=== PATIENT | female | born 1970 | race Caucasian/White ===

== ENCOUNTER 2017-02-04 10:36 | Emergency (ER) | payer OTHER ==
[~2017-02-04 10:36] MED LIST: ATIVAN1 MG PO; METROGEL0.751 VG; MEVACOR20 MG PO
[2017-02-04 11:43] LABS: PLATELET COUNT 400 x10^3mcL (130-400); RED CELL DISTRIBUTION WIDTH 12.9 % (11.5-14.5)
[2017-02-04 11:48] LABS: BASOPHIL % 2.2 % (0-2)
[2017-02-04 11:56] LABS: CALCIUM 8.5 mg/dL (8.5-10.1); CARBON DIOXIDE 26.6 mmol/L (21-32); CHLORIDE SERUM 104 mmol/L (98-107); CREATININE SERUM 0.8 mg/dL (0.6-1.0); GFR1 > 60 mL/min; GLUCOSE SERUM 109 mg/dL (74-106); SODIUM SERUM 139 mmol/L (136-145)
[2017-02-04 11:59] LABS: ALKALINE PHOSPHATASE 58 U/L (46-116); ALT/SGPT 26 U/L (14-59); AST/SGOT 26 U/L (15-37); BILIRUBIN TOTAL 0.24 mg/dL (0.20-1.00); HDL CHOLESTEROL 50 mg/dL (40-60); LIPASE 224 IU/L (73-393); TOTAL PROTEIN, SERUM 6.8 g/dL (6.4-8.2)
[2017-02-04 12:01] LABS: ALBUMIN 3.1 g/dL (3.4-5.0); CHOLESTEROL 216 mg/dL (<200); CHOLESTEROL/HDL RATIO 4.3; TRIGLYCERIDES 270 mg/dL (<150)
[2017-02-04 12:09] LABS: T3 TOTAL 0.87 ng/mL
[2017-02-04 12:11] LABS: FREE T4 0.76 ng/dL (0.76-1.46); FREE THYROXINE INDEX 1.7 ug/dL (1.4-4.5); T4(THYROXINE) 5.4 ug/dL (4.7-13.3)
[2017-02-04 12:37] LABS: microscopic required? YES; urine erythrocyte 3+ (NEGATIVE)
[2017-02-04 12:41] LABS: AMPHETAMINE QUAL UR NONE DETECTED (NEG <=1000)
[2017-02-04 13:43] VITALS: BP 104/70
== END 2017-02-04 13:43 | disposition home or self-care (01) ==
LOC: ED 10:36
PROVIDERS: Specialist
DX: R53.1 Weakness (principal); F17.210 Nicotine dependence, cigarettes, uncomplicated
CPT/HCPCS: 80307; 82962; 83880; 84439; J3490; Q0092

== ENCOUNTER 2017-02-11 11:24 | Observation (INO) | payer OTHER ==
[~2017-02-11] VITALS: Ht 160 cm; Wt 84.6 kg
[2017-02-11 12:02] LABS: BASOPHIL % 0.7 % (0-2); PLATELET COUNT 376 x10^3mcL (130-400); RED CELL DISTRIBUTION WIDTH 13.8 % (11.5-14.5)
[2017-02-11 12:15] LABS: CALCIUM 8.6 mg/dL (8.5-10.1); CARBON DIOXIDE 24.7 mmol/L (21-32); CHLORIDE SERUM 111 mmol/L (98-107); CREATININE SERUM 0.8 mg/dL (0.6-1.0); GFR1 > 60 mL/min; GLUCOSE SERUM 88 mg/dL (74-106); POTASSIUM SERUM 3.8 mmol/L (3.5-5.1); SODIUM SERUM 141 mmol/L (136-145)
[2017-02-11 12:19] LABS: ALKALINE PHOSPHATASE 59 U/L (46-116); ALT/SGPT 30 U/L (14-59); AMYLASE 35 U/L (25-115); AST/SGOT 15 U/L (15-37); BILIRUBIN TOTAL 0.4 mg/dL (0.20-1.00); CHOLESTEROL 195 mg/dL (<200); HDL CHOLESTEROL 49 mg/dL (40-60); LIPASE 224 IU/L (73-393); TOTAL PROTEIN, SERUM 6.9 g/dL (6.4-8.2)
[2017-02-11 12:23] LABS: ALBUMIN 3.2 g/dL (3.4-5.0)
[2017-02-11 12:31] LABS: microscopic required? YES; urine erythrocyte 3+ (NEGATIVE)
[2017-02-11 12:54] LABS: AMPHETAMINE QUAL UR NONE DETECTED (NEG <=1000)
[2017-02-11 16:22] VITALS: BP 114/59
[2017-02-11 19:30] VITALS: BP 119/71
[2017-02-11 20:38] LABS: CK-MB 0.7 ng/mL (0-3.6)
[2017-02-11 21:18] VITALS: BP 123/68
[2017-02-12 05:08] LABS: BASOPHIL % 0.8 % (0-2); PLATELET COUNT 343 x10^3mcL (130-400); RED CELL DISTRIBUTION WIDTH 13.6 % (11.5-14.5)
[2017-02-12 05:26] LABS: CALCIUM 8.2 mg/dL (8.5-10.1); CARBON DIOXIDE 26.5 mmol/L (21-32); CHLORIDE SERUM 108 mmol/L (98-107); CHOLESTEROL 198 mg/dL (<200); CHOLESTEROL/HDL RATIO 4.1; CREATININE SERUM 0.7 mg/dL (0.6-1.0); GFR1 > 60 mL/min; GLUCOSE SERUM 97 mg/dL (74-106); HDL CHOLESTEROL 48 mg/dL (40-60); SODIUM SERUM 142 mmol/L (136-145); TRIGLYCERIDES 176 mg/dL (<150)
[2017-02-12 05:31] LABS: CK-MB 0.5 ng/mL (0-3.6)
[2017-02-12 05:41] VITALS: BP 114/71
[2017-02-12 10:23] VITALS: BP 102/62
[2017-02-12 13:27] VITALS: BP 130/62
[2017-02-12 16:25] VITALS: BP 130/62
[2017-02-12 17:51] VITALS: BP 132/69
== END 2017-02-12 18:06 | disposition home or self-care (01) | DRG 203 ==
LOC: ED 11:24 → DU 15:21
PROVIDERS: Emergency Medicine; Internal Medicine; ADMIT Internal Medicine Pulmonary Disease
DX: R07.89 Other chest pain (principal); I42.9 Cardiomyopathy, unspecified; E78.5 Hyperlipidemia, unspecified; F15.10 Other stimulant abuse, uncomplicated; Z87.891 Personal history of nicotine dependence
CPT/HCPCS: 80307; 83880; 85378; 99406; A9500; G0378; J2785; Q0092

== ENCOUNTER 2017-03-12 21:24 | Inpatient (IN) | payer OTHER ==
[~2017-03-12] VITALS: Ht 165.1 cm; Wt 84.5 kg
[2017-03-12 22:09] LABS: BASOPHIL % 0.6 % (0-2); RED CELL DISTRIBUTION WIDTH 14.5 % (11.5-14.5)
[2017-03-12 22:11] LABS: PLATELET COUNT 433 x10^3mcL (130-400)
[2017-03-12 22:20] LABS: CALCIUM 9.2 mg/dL (8.5-10.1); CARBON DIOXIDE 23.7 mmol/L (21-32); CHLORIDE SERUM 101 mmol/L (98-107); CREATININE SERUM 0.9 mg/dL (0.6-1.0); GFR1 > 60 mL/min; GLUCOSE SERUM 115 mg/dL (74-106); POTASSIUM SERUM 3.8 mmol/L (3.5-5.1); SODIUM SERUM 137 mmol/L (136-145)
[2017-03-12 22:26] LABS: ALBUMIN 3.3 g/dL (3.4-5.0); ALKALINE PHOSPHATASE 68 U/L (46-116); ALT/SGPT 27 U/L (14-59); AMYLASE 26 U/L (25-115); AST/SGOT 19 U/L (15-37); BILIRUBIN TOTAL 0.5 mg/dL (0.20-1.00); LIPASE 91 IU/L (73-393)
[2017-03-12 22:37] LABS: UA SPECIFIC GRAVITY 1.025 (1.005-1.035); microscopic required? YES; urine erythrocyte 3+ (NEGATIVE)
[2017-03-13 03:27] VITALS: BP 1112/68; BP 140/70
[2017-03-13 06:22] VITALS: BP 104/65
[2017-03-13 07:45] VITALS: BP 104/64
[2017-03-13 08:42] LABS: BASOPHIL % 0.3 % (0-2); PLATELET COUNT 382 x10^3mcL (130-400); RED CELL DISTRIBUTION WIDTH 14.4 % (11.5-14.5)
[2017-03-13 09:21] LABS: ALKALINE PHOSPHATASE 57 U/L (46-116); ALT/SGPT 22 U/L (14-59); AST/SGOT 15 U/L (15-37); BILIRUBIN TOTAL 0.3 mg/dL (0.20-1.00); CALCIUM 8.2 mg/dL (8.5-10.1); CARBON DIOXIDE 26.8 mmol/L (21-32); CHLORIDE SERUM 102 mmol/L (98-107); CREATININE SERUM 0.8 mg/dL (0.6-1.0); GFR1 > 60 mL/min; GLUCOSE SERUM 104 mg/dL (74-106); POTASSIUM SERUM 3.9 mmol/L (3.5-5.1); SODIUM SERUM 137 mmol/L (136-145); TOTAL PROTEIN, SERUM 6.8 g/dL (6.4-8.2)
[2017-03-13 09:41] LABS: ALBUMIN 2.5 g/dL (3.4-5.0)
[2017-03-13 10:06] VITALS: BP 105/64
[2017-03-13 18:07] VITALS: BP 116/71
[2017-03-13 21:01] VITALS: BP 107/72
[2017-03-14 06:32] LABS: BASOPHIL % 0.3 % (0-2); PLATELET COUNT 386 x10^3mcL (130-400); RED CELL DISTRIBUTION WIDTH 14.1 % (11.5-14.5)
[2017-03-14 06:34] LABS: CALCIUM 8.3 mg/dL (8.5-10.1); CARBON DIOXIDE 23.6 mmol/L (21-32); CHLORIDE SERUM 105 mmol/L (98-107); CREATININE SERUM 0.8 mg/dL (0.6-1.0); GFR1 > 60 mL/min; GLUCOSE SERUM 100 mg/dL (74-106); POTASSIUM SERUM 3.9 mmol/L (3.5-5.1); SODIUM SERUM 139 mmol/L (136-145)
[2017-03-14 06:55] VITALS: BP 106/64
[2017-03-14 09:40] VITALS: BP 116/78
[2017-03-14 17:15] VITALS: BP 122/80
[2017-03-14 21:35] VITALS: BP 117/73
[2017-03-15 05:45] VITALS: BP 109/52
[2017-03-15 09:25] LABS: BASOPHIL % 0.3 % (0-2); RED CELL DISTRIBUTION WIDTH 13.8 % (11.5-14.5)
[2017-03-15 09:26] LABS: PLATELET COUNT 424 x10^3mcL (130-400)
[2017-03-15 10:12] VITALS: BP 104/67
[2017-03-15 10:20] LABS: CARBON DIOXIDE 27.9 mmol/L (21-32); CHLORIDE SERUM 102 mmol/L (98-107); GLUCOSE SERUM 122 mg/dL (74-106); SODIUM SERUM 135 mmol/L (136-145)
[2017-03-15 10:21] LABS: ALBUMIN 2.5 g/dL (3.4-5.0); ALKALINE PHOSPHATASE 59 U/L (46-116); ALT/SGPT 20 U/L (14-59); AST/SGOT 16 U/L (15-37); BILIRUBIN TOTAL 0.1 mg/dL (0.20-1.00); CALCIUM 8.5 mg/dL (8.5-10.1); CREATININE SERUM 0.9 mg/dL (0.6-1.0); GFR1 > 60 mL/min; TOTAL PROTEIN, SERUM 6.5 g/dL (6.4-8.2)
[2017-03-15 13:28] VITALS: BP 104/67
[2017-03-15 17:34] VITALS: BP 124/96
[2017-03-15 21:29] VITALS: BP 119/78
[2017-03-16 05:40] VITALS: BP 103/70
[2017-03-16 11:18] VITALS: BP 109/71
[2017-03-16 13:10] VITALS: BP 109/71
== END 2017-03-16 14:52 | disposition home or self-care (01) | DRG 531 ==
LOC: ED 21:24 → MU 03-13 01:06
PROVIDERS: Emergency Medicine; Internal Medicine Pulmonary Disease; ADMIT Internal Medicine
DX: N70.93 Salpingitis and oophoritis, unspecified (principal); K57.32 Diverticulitis of large intestine without perforation or abscess without bleeding; K59.00 Constipation, unspecified; N73.9 Female pelvic inflammatory disease, unspecified; Z98.51 Tubal ligation status
CPT/HCPCS: J0696; J1170; J1650; J1956; J2270; J2405; J3490; J7030; Q9966; Q9967

== ENCOUNTER 2017-07-02 18:24 | Emergency (ER) | payer OTHER ==
[2017-07-02 19:17] VITALS: BP 129/71
== END 2017-07-02 19:17 | disposition home or self-care (01) ==
LOC: ED 18:24
DX: J20.9 Acute bronchitis, unspecified (principal)

== ENCOUNTER 2018-04-26 10:45 | Emergency (ER) | payer OTHER ==
[~2018-04-26] VITALS: Ht 165.1 cm; Wt 85.3 kg
[2018-04-26 10:49] VITALS: Ht 165.1 cm; Wt 85.3 kg
[2018-04-26 15:44] VITALS: BP 126/80
== END 2018-04-26 15:44 | disposition home or self-care (01) ==
LOC: ED 10:45
DX: M25.552 Pain in left hip (principal); M25.551 Pain in right hip; R50.9 Fever, unspecified
CPT/HCPCS: J1885; J3010; Q0162

== ENCOUNTER 2019-04-24 13:39 | Emergency (ER) | payer OTHER ==
[~2019-04-24] VITALS: Ht 167.6 cm; Wt 87.1 kg
[2019-04-24 13:59] VITALS: Ht 167.6 cm; Wt 87.1 kg
[2019-04-24 15:38] LABS: BASOPHIL % 0.8 % (0-2); PLATELET COUNT 260 x10^3mcL (130-400); RED CELL DISTRIBUTION WIDTH 13.1 % (11.5-14.5)
[2019-04-24 15:46] LABS: CARBON DIOXIDE 20.7 mmol/L (21-32); CHLORIDE SERUM 109 mmol/L (98-107); GFR1 > 60 mL/min; GLUCOSE SERUM 118 mg/dL (74-106); POTASSIUM SERUM 3.3 mmol/L (3.5-5.1); SODIUM SERUM 143 mmol/L (136-145)
[2019-04-24 15:50] LABS: ALKALINE PHOSPHATASE 73 U/L (46-116); ALT/SGPT 42 U/L (14-59); AST/SGOT 29 U/L (15-37); BILIRUBIN TOTAL 0.5 mg/dL (0.20-1.00); LIPASE 54 IU/L (73-393); TOTAL PROTEIN, SERUM 6.9 g/dL (6.4-8.2)
[2019-04-24 15:56] LABS: ALBUMIN 2.8 g/dL (3.4-5.0)
[2019-04-24 16:22] LABS: UA SPECIFIC GRAVITY 1.015 (1.005-1.035); microscopic required? YES; urine erythrocyte 3+ (NEGATIVE)
[2019-04-24 17:46] VITALS: BP 121/75
== END 2019-04-24 18:15 | disposition home or self-care (01) ==
LOC: ED 13:39
PROVIDERS: Emergency Medicine
DX: N10 Acute pyelonephritis (principal); F17.210 Nicotine dependence, cigarettes, uncomplicated
CPT/HCPCS: 99406; J0696; J1885; J2405; J7060; Q0092

== ENCOUNTER 2019-11-12 15:07 | Emergency (ER) | payer OTHER ==
[~2019-11-12] VITALS: Ht 165.1 cm; Wt 88.0 kg
[2019-11-12 15:28] VITALS: BP 110/73; Ht 165.1 cm; Wt 88.0 kg
== END 2019-11-12 16:04 | disposition home or self-care (01) ==
LOC: ED 15:07
DX: B34.9 Viral infection, unspecified (principal); F17.210 Nicotine dependence, cigarettes, uncomplicated
CPT/HCPCS: J1885

== ENCOUNTER 2019-11-13 19:06 | Emergency (ER) | payer OTHER ==
[~2019-11-13] VITALS: Ht 165.1 cm; Wt 83.5 kg
[2019-11-13 19:35] VITALS: Ht 165.1 cm; Wt 83.5 kg
[2019-11-14 02:09] LABS: BASOPHIL % 0.7 % (0-2); PLATELET COUNT 255 x10^3mcL (130-400); RED CELL DISTRIBUTION WIDTH 12.5 % (11.5-14.5)
[2019-11-14 02:19] LABS: CALCIUM 8.5 mg/dL (8.5-10.1); CARBON DIOXIDE 24.8 mmol/L (21-32); CHLORIDE SERUM 107 mmol/L (98-107); GFR1 > 60 mL/min; GLUCOSE SERUM 131 mg/dL (74-106); SODIUM SERUM 141 mmol/L (136-145)
[2019-11-14 02:24] LABS: ALBUMIN 3.3 g/dL (3.4-5.0); ALKALINE PHOSPHATASE 81 U/L (46-116); ALT/SGPT 59 U/L (14-59); AST/SGOT 46 U/L (15-37); LIPASE 232 IU/L (73-393); TOTAL PROTEIN, SERUM 7.2 g/dL (6.4-8.2)
[2019-11-14 04:17] VITALS: BP 120/79
[2019-11-14 05:26] LABS: UA SPECIFIC GRAVITY 1.025 (1.005-1.035); microscopic required? YES; urine erythrocyte 2+ (NEGATIVE)
== END 2019-11-14 04:18 | disposition home or self-care (01) ==
LOC: ED 19:06
PROVIDERS: Emergency Medicine
DX: B34.9 Viral infection, unspecified (principal)
CPT/HCPCS: 87804; J1885; J7030